=== PATIENT | male | born 1995 | race Asian ===

== ENCOUNTER 2022-05-25 20:32 | Emergency (ER) | payer BC ==
[~2022-05-25] VITALS: Ht 185.4 cm; Wt 91.0 kg
[2022-05-25 20:55] VITALS: BP 136/90
== END 2022-05-25 23:07 | disposition left against medical advice (07) ==
LOC: ER 20:32
DX: Z53.21 Procedure and treatment not carried out due to patient leaving prior to being seen by health care provider (principal)